=== PATIENT | male | born 1965 | race Caucasian/White ===

== ENCOUNTER → 2023-03-17 | Outpatient (CLI) | payer MEDICARE, OTHER ==
[2023-03-17 12:35] LABS: C-REACTIVE PROTEIN, EXT RANGE 0.302 mg/dL (0.000-0.300)
[2023-03-17 12:36] LABS: Albumin, Blood 4.1 g/dL (3.4-5.0); Albumin/Globulin Ratio 1.2 (0.8-1.8); Bilirubin, Total 0.4 mg/dL (0.1-1.0); Bun/Creatinine Ratio 24.4 (12.0-20.0); Calcium, Blood 9.1 mg/dL (8.5-10.1); Creatinine, Blood 0.61 mg/dL (0.60-1.20); Globulin, Blood 3.3 g/dL (2.2-4.0); Potassium, Blood 4.6 mmol/L (3.5-5.5); Total Protein, Blood 7.4 g/dL (6.4-8.2)
== END ==
LOC: LAB SHORT 11:15 → LAB 11:15
PROVIDERS: Student in an Organized Health Care Education/Training Program
DX: I10 Essential (primary) hypertension (principal); R51.9 Headache, unspecified
CPT/HCPCS: 80053; 86140